=== PATIENT | female | born 1995 | race Caucasian/White ===

== ENCOUNTER 2019-05-17 07:45 | Emergency (ER) | payer SELFPAY ==
[~2019-05-17] VITALS: Ht 170.2 cm; Wt 78.5 kg
[2019-05-17 07:59] VITALS: BP 116/89
--- NOTE | 2019-05-17 08:04 | NUR ---
ED Nurse Note: pt walked in from home due to N/V/D x3 days. per pt, she had V/D this morning. pt reported she smoked marihuana and took sleeping pill that her sister in law gave you and has not slept well for 10 days and having palpitation for last 10 hours. agitation noted and stated "Please help me. I need to sleep" and tearful. follows commands. skin clean and intact. tachycardia 138/min notified to ERMBrandy.
[2019-05-17] MEDS ORDERED: LORazepam Inj 2mg/ml 1ml IV ONE (08:15)
[2019-05-17 08:29] LABS: APPEARANCE,URINE CLEAR; BILIRUBIN, URINE NEGATIVE (NEGATIVE); COLOR,URINE PALE YELLOW; GLUCOSE, URINE (UA) NEGATIVE (NEGATIVE); HEMATOCRIT 42.9 % (37.0-47.0); HEMOGLOBIN 14.5 G/DL (12.0-16.0); KETONES,URINE 1+ (NEGATIVE); LEUKOCYTE ESTERASE ,URINE 1+ (NEGATIVE); MEAN CORPUSCULAR VOLUME 85 FL (80-99); NITRITE,URINE NEGATIVE (NEGATIVE); PH,URINE 5 (4.5-8.0); PLATELET COUNT 230 K/UL (150-450); PROTEIN,URINE 1+ (NEGATIVE); RED BLOOD COUNT 5.05 M/UL (4.20-5.40); RED CELL DISTRIBUTION WIDTH 11.5 % (11.6-14.8); UROBILINOGEN,URINE NORMAL MG/DL (0.0-1.0)
[2019-05-17 08:37] LABS: ANION GAP 15 mmol/L (5-15); BLOOD UREA NITROGEN 18 mg/dL (7-18); CALCIUM 8.4 MG/DL (8.5-10.1); CARBON DIOXIDE 20 MMOL/L (21-32); CHLORIDE 106 MMOL/L (98-107); CREATININE 0.9 MG/DL (0.55-1.30); POTASSIUM 3.5 MMOL/L (3.5-5.1); SODIUM 141 MMOL/L (136-145)
[2019-05-17 08:42] LABS: ALANINE AMINOTRANSFERASE 29 U/L (12-78); ALBUMIN/GLOBULIN RATIO 1.1 (1.0-2.7); ALKALINE PHOSPHATASE 41 U/L (46-116); ASPARTATE AMINO TRANSFERASE 13 U/L (15-37); BILIRUBIN,TOTAL 0.5 MG/DL (0.2-1.0)
--- NOTE | 2019-05-17 08:54 | Emergency Room Report ---
History of Present Illness General Chief Complaint: Nausea, Vomiting, and Diarrhea Source: Patient Present Illness HPI 23-year-old female presents ED for evaluation. Patient walked in complaining of vomiting and diarrhea and nausea for the last 3 days. Also states that she has not slept in 10 days. Has been taking multiple medications to help her sleep including CBD and Benadryl. States that she had a recent trip to [place] where she "suffered PTSD". Will not specify further what happened. Denies alcohol or drug use. Denies SI or HI. Denies hearing voices. No other aggravating relieving factors. Denies any other associated symptoms Allergies: Coded Allergies: No Known Allergies (Unverified , 05/17/19) Patient History Past Medical History: none Past Surgical History: none Pertinent Family History: none Social History: Reports: drug use; Denies: smoking, alcohol use Last Menstrual Period: 05/14/19 Now: No Immunizations: UTD Reviewed Nursing Documentation: PMH: Agreed; PSxH: Agreed Nursing Documentation-PMH Past Medical History: No Stated History Review of Systems All Other Systems: negative except mentioned in HPI Physical Exam Vital Signs Date Time Temp Pulse Resp B/P (MAP) Pulse Ox O2 Delivery O2 Flow Rate FiO2 05/17/19 07:50 98.8 145 22 116/89 (98) 99 Room Air Sp02 EP Interpretation: reviewed, normal General Appearance: no apparent distress, alert, GCS 15, non-toxic Head: normocephalic, atraumatic Eyes: bilateral eye normal inspection, bilateral eye PERRL ENT: hearing grossly normal, normal pharynx, no angioedema, normal voice Neck: full range of motion, supple/symm/no masses Respiratory: chest non-tender, lungs clear, normal breath sounds, speaking full sentences Cardiovascular #1: no edema, tachycardia Cardiovascular #2: 2+ carotid (R), 2+ carotid (L), 2+ radial (R), 2+ radial (L) , 2+ dorsalis pedis (R), 2+ dorsalis pedis (L) Gastrointestinal: normal bowel sounds, non tender, soft, non-distended, no guarding, no rebound Rectal: deferred Genitourinary: normal inspection, no CVA tenderness Musculoskeletal: back normal, normal range of motion, gait/station normal, non- tender Neurologic: alert, motor strength/tone normal, oriented x3, sensory intact, responsive, speech normal Psychiatric: judgement/insight normal, memory normal, no suicidal/homicidal ideation, no delusions, anxious Reflexes: 3+ bicep (R), 3+ bicep (L), 3+ tricep (R), 3+ tricep (L), 3+ knee (R) , 3+ knee (L) Skin: no rash Lymphatic: no adenopathy Medical Decision Making Diagnostic Impression: Primary Impression: Gastroenteritis Additional Impression: Anxiety ER Course Hospital Course 23 yo F presents to ED c/o vomiting, diarrhea. anxious differential diagnosis: gastritis, SBO, substance abuse, gastroenteritis Clinical course Patient placed on stretcher. On quality assurance monitor final. After initial history and physical I ordered labs, IV fluids, Zofran, ativan, pepcid Labs - no leukocytosis, electrolytes ok, LFTs normal, UA unremarkable Initially tachycardic and improved with IV fluids. On reassessment patient states she feels better. Feels less anxious. Discussed findings with patient. Will discharge to home. Safe for discharge for close outpatient follow-up. Does not have a PMD. I will provide referrals I feel this is a highly complex case requiring extensive working including EKG/ Rhythm strip, Xray/CT/US, Blood/urine lab work, repeat exams while in ED, and administration of strong opiates/narcotics for pain control, admission to hospital or close patient follow up. Diagnosis - gastroenteritis, anxiety Stable and discharged to home with prescriptions for Zantac, zofran. Followup with PMD. Return to ED if symptoms recur or worsen Labs Test 05/17/19 08:15 White Blood Count 9.0 K/UL (4.8-10.8) Red Blood Count 5.05 M/UL (4.20-5.40) Hemoglobin 14.5 G/DL (12.0-16.0) Hematocrit 42.9 % (37.0-47.0) Mean Corpuscular Volume 85 FL (80-99) Mean Corpuscular Hemoglobin 28.8 PG (27.0-31.0) Mean Corpuscular Hemoglobin Concent 33.9 G/DL (32.0-36.0) Red Cell Distribution Width 11.5 % (11.6-14.8) Platelet Count 230 K/UL (150-450) Mean Platelet Volume 7.7 FL (6.5-10.1) Neutrophils (%) (Auto) % (45.0-75.0) Lymphocytes (%) (Auto) % (20.0-45.0) Monocytes (%) (Auto) % (1.0-10.0) Eosinophils (%) (Auto) % (0.0-3.0) Basophils (%) (Auto) % (0.0-2.0) Differential Total Cells Counted 100 Neutrophils % (Manual) 90 % (45-75) Lymphocytes % (Manual) 8 % (20-45) Monocytes % (Manual) 2 % (1-10) Eosinophils % (Manual) 0 % (0-3) Basophils % (Manual) 0 % (0-2) Band Neutrophils 0 % (0-8) Platelet Estimate Adequate Platelet Morphology Normal Red Blood Cell Morphology Normal Urine Color Pale yellow Urine Appearance Clear Urine pH 5 (4.5-8.0) Urine Specific [place] 1.020 (1.005-1.035) Urine Protein 1+ (NEGATIVE) Urine Glucose (UA) Negative (NEGATIVE) Urine Ketones 1+ (NEGATIVE) Urine Blood 3+ (NEGATIVE) Urine Nitrite Negative (NEGATIVE) Urine Bilirubin Negative (NEGATIVE) Urine Urobilinogen Normal MG/DL (0.0-1.0) Urine Leukocyte Esterase 1+ (NEGATIVE) Urine RBC 2-4 /HPF (0 - 2) Urine WBC 0-2 /HPF (0 - 2) Urine Squamous Epithelial Cells Few /LPF (NONE/OCC) Urine Bacteria Few /HPF (NONE) Urine Mucus Moderate /LPF (NONE/OCC) Urine HCG, Qualitative Negative (NEGATIVE) Sodium Level 141 MMOL/L (136-145) Potassium Level 3.5 MMOL/L (3.5-5.1) Chloride Level 106 MMOL/L (98-107) Carbon Dioxide Level 20 MMOL/L (21-32) Anion Gap 15 mmol/L (5-15) Blood Urea Nitrogen 18 mg/dL (7-18) Creatinine 0.9 MG/DL (0.55-1.30) Estimat Glomerular Filtration Rate > 60 mL/min (>60) Glucose Level 129 MG/DL (74-106) Calcium Level 8.4 MG/DL (8.5-10.1) Total Bilirubin 0.5 MG/DL (0.2-1.0) Aspartate Amino Transf (AST/SGOT) 13 U/L (15-37) Alanine Aminotransferase (ALT/SGPT) 29 U/L (12-78) Alkaline Phosphatase 41 U/L (46-116) Total Protein 7.6 G/DL (6.4-8.2) Albumin 4.0 G/DL (3.4-5.0) Globulin 3.6 g/dL Albumin/Globulin Ratio 1.1 (1.0-2.7) Salicylates Level 0.5 ug/mL (2.8-20) Urine Opiates Screen Negative (NEGATIVE) Acetaminophen Level < 2 MCG/ML (10-30) Urine Barbiturates Screen Negative (NEGATIVE) Phencyclidine (PCP) Screen Negative (NEGATIVE) Urine Amphetamines Screen Negative (NEGATIVE) Urine Benzodiazepines Screen Negative (NEGATIVE) Urine Cocaine Screen Negative (NEGATIVE) Urine Marijuana (THC) Screen Negative (NEGATIVE) Serum Alcohol < 3 mg/dL Last Vital Signs Date Time Temp Pulse Resp B/P (MAP) Pulse Ox O2 Delivery O2 Flow Rate FiO2 05/17/19 07:59 98.8 84 22 116/89 99 Room Air Status: improved Disposition: HOME, SELF-CARE Condition: Stable Scripts Ondansetron Odt* (ZOFRAN ODT*) 4 Mg Tab.rapdis 4 MG BC EVERY 6 HOURS PRN for Nausea & Vomiting, #10 TAB 0 Refills Prov: Star Magallanes MD 05/17/19 Ranitidine Hcl* (ZANTAC*) 150 Mg Tablet 150 MG ORAL TWICE A DAY, #30 TAB Prov: Star Magallanes MD 05/17/19 Referrals: NOT CHOSEN IPA/,REFERRING (PCP) Star Magallanes MD May 17, 2019 08:54
[2019-05-17] MEDS ORDERED: RANITIDINE HCL150 MG ORAL (09:26)
[2019-05-17] MEDS ORDERED: ONDANSETRON ODT4 MG BC (09:26)
[2019-05-17 09:34] VITALS: BP 111/85
--- NOTE | 2019-05-17 09:35 | NUR ---
ED Nurse Note: Pt cleared by health care Provider for discharge. DC instructions/prescription was given and explained to pt and verbalized understanding of teachings. Patient was told to follow up with pcp and pt agreed with it. All medical deviecs such as ID band removed. Pt is AAO x4, ambulatory and left with all personal belongings.
== END 2019-05-17 09:36 | disposition home or self-care (01) ==
LOC: EMR 08:32
DX: K52.9 Noninfective gastroenteritis and colitis, unspecified (principal); F41.9 Anxiety disorder, unspecified
CPT/HCPCS: 36415; 80053; 80307; 81003; 81025; 85007; 85025; 96361; 96374; 96375; 99284; G0480; J2405; J7030; S0028

== ENCOUNTER 2019-05-19 11:44 | Emergency (ER) | payer SELFPAY ==
[~2019-05-19] VITALS: Ht 170.2 cm; Wt 77.1 kg
[~2019-05-19 11:44] MED LIST: ONDANSETRON ODT4 MG BC; RANITIDINE HCL150 MG ORAL
--- NOTE | 2019-05-19 12:03 | NUR ---
ED Nurse Note: Pt ambulated to ED with the c/o nausea, vomiting and diarrhea for 3-4 days. Pt is AOx4, VSS, on RA. Pt denies abdominal pain. Placed on bed. Able to urinated, specimen obtained.
[2019-05-19 12:06] VITALS: BP 136/86
--- NOTE | 2019-05-19 12:08 | Emergency Room Report ---
History of Present Illness General Chief Complaint: Nausea, Vomiting, and Diarrhea Source: Patient Present Illness HPI 23-year-old female with no significant past medical history here complaining of nausea and vomiting and diarrhea x4 days. Patient was seen at [facility] 2 days ago for same complaint. Blood work, urine sample, IV fluids were ordered and all confirmed the patient is within normal limits. Patient is also suffering from anxiety and 2 days ago mention that she has PTSD but did not specify. Reports that she never picked up the prescription for ranitidine and Zofran from the pharmacy. Continues to have few bouts of nonbloody emesis and diarrhea on daily basis. Has good skin turgor, appears to be hydrated, vital signs are within normal limits. Complains of urinary frequency and urgency x4 days. Denies dysuria. Reports that her menstrual periods are within normal limits and denies at this time. Denies chest pain, shortness of breath, palpitation, headache and dizziness. Patient reports that she is flying back to her home country today and is going to be on a 13-hour flight. Would like to know if needs IV fluids. Allergies: Coded Allergies: No Known Allergies (Unverified , 05/17/19) Patient History Past Medical History: see triage record Past Surgical History: unable to obtain Pertinent Family History: none Last Menstrual Period: 03/2019 Now: No Immunizations: UTD Reviewed Nursing Documentation: PMH: Agreed; PSxH: Agreed Nursing Documentation-PMH Past Medical History: No Stated History Review of Systems All Other Systems: negative except mentioned in HPI Physical Exam Vital Signs Date Time Temp Pulse Resp B/P (MAP) Pulse Ox O2 Delivery O2 Flow Rate FiO2 05/19/19 11:53 97.9 90 20 136/86 (103) 98 Room Air Sp02 EP Interpretation: reviewed, normal General Appearance: no apparent distress, alert, GCS 15, non-toxic Head: normocephalic, atraumatic Eyes: bilateral eye normal inspection, bilateral eye PERRL ENT: hearing grossly normal, normal pharynx, no angioedema, normal voice Neck: full range of motion, supple, no meningismus, supple/symm/no masses Respiratory: chest non-tender, lungs clear, normal breath sounds, no rhonchi, no wheezing, speaking full sentences Cardiovascular #1: regular rate, rhythm, no edema, no murmur, normal capillary refill Cardiovascular #2: 2+ carotid (R), 2+ carotid (L), 2+ radial (R), 2+ radial (L) Gastrointestinal: normal bowel sounds, non tender, soft, no mass, no organomegaly, non-distended, no guarding, no rebound Rectal: deferred Genitourinary: normal inspection, no CVA tenderness Musculoskeletal: back normal, normal range of motion, no calf tenderness Neurologic: alert, motor strength/tone normal, oriented x3, sensory intact, responsive, speech normal Psychiatric: judgement/insight normal, memory normal, mood/affect normal, no suicidal/homicidal ideation Skin: no rash, palpation normal, normal color, warm/dry Lymphatic: no adenopathy Medical Decision Making PA Attestation All my diagnosis and treatment plans were reviewed ad discussed with my supervising physician Dr. Magallanes Diagnostic Impression: Primary Impression: Nausea, vomiting, and diarrhea Additional Impression: UTI (urinary tract infection) ER Course 23-year-old female with no significant past medical history here complaining of nausea and vomiting and diarrhea x4 days. Patient was seen at [facility] 2 days ago for same complaint. Blood work, urine sample, IV fluids were ordered and all confirmed the patient is within normal limits. Patient is also suffering from anxiety and 2 days ago mention that she has PTSD but did not specify. Reports that she never picked up the prescription for ranitidine and Zofran from the pharmacy. Continues to have few bouts of nonbloody emesis and diarrhea on daily basis. Has good skin turgor, appears to be hydrated, vital signs are within normal limits. Complains of urinary frequency and urgency x4 days. Denies dysuria. Reports that her menstrual periods are within normal limits and denies at this time. Denies chest pain, shortness of breath, palpitation, headache and dizziness. Patient reports that she is flying back to her home [place] today and is going to be on a 13-hour flight. Would like to know if needs IV fluids. Ddx considered but are not limited to: UTI, nausea vomiting diarrhea secondary to anxiety, secondary to gastroenteritis, appendicitis Vital signs: are WNL, pt. is afebrile H&PE are most consistent with: Nausea vomiting diarrhea secondary to anxiety, UTI based on urine findings that was done 2 days ago and patient symptomatic. ORDERS: Dicyclomine, Macrobid ED INTERVENTIONS: None required at this time. DISCHARGE: At this time pt. is stable for d/c to home. Will provide printed patient care instructions, and any necessary prescriptions. Care plan and follow up instructions have been discussed with the patient prior to discharge. 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 Also increase oral hydration electrolyte water. Keep brat diet. Due to patient having urinary frequency and urgency and slight minimal infection found on urine dip 2 days ago patient to be treated symptomatically for possible UTI. If worsening symptoms return to emergency room. At this time patient does not need any IV fluids and to follow with her primary care provider also address PTSD and anxiety when following up with primary care provider as patient does not want to discuss this at this time. Patient denies SI and HI. Last Vital Signs Date Time Temp Pulse Resp B/P (MAP) Pulse Ox O2 Delivery O2 Flow Rate FiO2 05/19/19 11:53 97.9 90 20 136/86 (103) 98 Room Air Status: improved Disposition: HOME, SELF-CARE Condition: Stable Scripts Nitrofurantoin Monohyd/M-Cryst* (MACROBID 100 MG*) 100 Mg Capsule 100 MG ORAL EVERY 12 HOURS for 7 Days, #14 CAP Prov: Blake Vázquez 05/19/19 Dicyclomine Hcl* (DICYCLOMINE HCL*) 10 Mg Capsule 10 MG ORAL TID, #10 CAP Prov: Blake Vázquez 05/19/19 Patient Instructions: Diarrhea, Adult, [id number], Nausea and Vomiting, Adult , [id number], Urinary Tract Infection, [id number] Additional Instructions: Take medication as directed, follow-up with your primary care provider, increase oral hydration, if worsening symptoms return to the emergency room Blake Vázquez May 19, 2019 12:08
[2019-05-19] MEDS ORDERED: DICYCLOMINE HCL10 MG ORAL (12:09)
[2019-05-19] MEDS ORDERED: NITROFURANTOIN100 M2 ORAL (12:09)
[2019-05-19 12:13] VITALS: BP 136/86
--- NOTE | 2019-05-19 12:13 | NUR ---
ER DISCHARGE NOTE: Pt is medically cleared to be discharged per ERMD. Pt is AOx4, VSS, on RA; no signs of acute distress. pt was given dc and prescription instructions, pt was able to verbalize understanding, pt id band removed. pt is able to ambulate with steady gait. pt took all belongings.
== END 2019-05-19 12:13 | disposition home or self-care (01) ==
LOC: EMR 12:05
DX: R11.2 Nausea with vomiting, unspecified (principal); R19.7 Diarrhea, unspecified; N39.0 Urinary tract infection, site not specified; F41.9 Anxiety disorder, unspecified
CPT/HCPCS: 99282